=== PATIENT | male | born 1945 | race Caucasian/White ===

== ENCOUNTER 2024-08-04 06:46 | Emergency (ER) | payer OTHER ==
[~2024-08-04] VITALS: Ht 172.7 cm; Wt 64.0 kg
[2024-08-04 07:38] LABS: BASOPHILS # (AUTO) 0.1 K/uL (0.0-0.2); BASOPHILS % (AUTO) 0.8 % (0.0-2.0); EOSINOPHILS # (AUTO) 0.6 K/uL (0.0-0.7); EOSINOPHILS % (AUTO) 6.1 % (0.0-6.0); HEMATOCRIT 35 % (39-51); HEMOGLOBIN 11.7 g/dL (13.5-17.5); LYMPHOCYTES # (AUTO) 1.9 K/uL (0.8-4.8); MEAN CORPUSCULAR HEMOGLOBIN 31 PG (26.0-33.0); MEAN CORPUSCULAR HGB CONC 33 g/dl (31.0-36.0); MEAN CORPUSCULAR VOLUME 93 fL (80-96); MONOCYTES # (AUTO) 0.9 K/uL (0.1-1.30); MONOCYTES % (AUTO) 9.6 % (2.0-12.0); NEUTROPHILS % (AUTO) 63.5 % (43.0-81.0); PLATELET COUNT (AUTO) 382 K/uL (150-450); RED BLOOD CELL COUNT(AUTO) 3.79 MIL/uL (4.5-6.0); RED CELL DISTRIBUTION WIDTH 15.6 % (11.5-15.0); WHITE BLOOD COUNT (AUTO) 9.5 K/uL (4.3-11.0)
[2024-08-04] MEDS: IV NS 0.9% 1,000 ML BAG IV ONE (07:47)
[2024-08-04 07:51] LABS: CREATININE 1.2 mg/dL (0.6-1.3); LIPASE 13 U/L (16-77); POTASSIUM 4.4 mmol/L (3.5-5.1)
[2024-08-04 08:01] LABS: LACTIC ACID 0.6 mmol/L (0.4-2.0)
[2024-08-04 08:08] LABS: ALBUMIN 3.1 g/dL (3.4-5.0); BILIRUBIN,DIRECT 0.1 mg/dL (0.0-0.2); BILIRUBIN,TOTAL 0.3 mg/dL (0.2-1.0); TOTAL PROTEIN, SERUM 7.4 g/dL (6.4-8.2)
[2024-08-04 08:11] LABS: NT-PRO BNP 142 pg/mL (0-125)
[2024-08-04 08:12] LABS: SERUM AMMONIA 4 umol/L (11-32)
[2024-08-04] MEDS: VANCOMYCIN 1 GM in IV D5W 250 ML IV ONE (08:28)
[2024-08-04] MEDS: PIPERACILLIN /TAZOBACTAM 3.375 G in IV D5W 50 ML IV ONE (08:28)
[2024-08-04 09:28] LABS: INR 2.1 (0.91-1.10); PARTIAL THROMBOPLASTIN TIME 67.1 SEC (24.3-34.3); PROTHROMBIN TIME 21.2 SECS (9.2-11.1)
[2024-08-04 11:04] LABS: APPEARANCE,URINE CLEAR (CLEAR); BILIRUBIN,URINE NEGATIVE (NEGATIVE); BLOOD, URINE TRACE-INTA Ery/uL (NEGATIVE); COLOR,URINE OTHER (YELLOW); KETONES,URINE NEGATIVE (NEGATIVE); LEUKOCYTE ESTERASE ,URINE TRACE (NEGATIVE); NITRITE, URINE NEGATIVE (NEGATIVE); PROTEIN,URINE NEGATIVE (NEGATIVE); UGLUCOSE NEGATIVE (NEGATIVE); UROBILINOGEN,URINE 0.2 EU/dL (0.2)
[2024-08-04 11:13] LABS: ADD URINE CULTURE NO; BACTERIA,URINE Rare /HPF (None Seen); SQUAMOUS EPITHELIAL CELL,UR None Seen /HPF (None Seen); WBC,URINE 0-2 /HPF (0-3)
[2024-08-04 14:11] VITALS: BP 128/72; TEMP 98.3; O2SAT 96
== END 2024-08-04 13:00 | disposition short-term general hospital (02) ==
LOC: ER 06:58
DX: J18.9 Pneumonia, unspecified organism (principal); R41.82 Altered mental status, unspecified; I10 Essential (primary) hypertension; M10.9 Gout, unspecified; Z87.440 Personal history of urinary (tract) infections; Z87.09 Personal history of other diseases of the respiratory system; Z20.822 Contact with and (suspected) exposure to COVID-19
CPT/HCPCS: 99291; 96365; 70450; 71045; 87426; 96368; 93005; 87804 ×2; 82140; 84145; 85025; 80048; 87040 ×2; 87086; 83605; 83690; 80076; 81001; 36415; 84484; 85730; 83880; 82962; J3370; J2543; J7060; J7030; A4223

== ENCOUNTER 2025-03-12 02:13 | Emergency (ER) | payer OTHER ==
[~2025-03-12] VITALS: Ht 172.7 cm; Wt 63.5 kg
[2025-03-12 02:52] VITALS: O2SAT 99
[2025-03-12] MEDS ORDERED: PANTOPRAZOLE 40 MG VIAL ONE (02:53)
[2025-03-12] MEDS ORDERED: ONDANSETRON HCL/PF 4 MG/2 ML VIAL ONE (02:54)
[2025-03-12 03:06] LABS: PLATELET COUNT (AUTO) 387 K/uL (150-450); RED BLOOD CELL COUNT(AUTO) 3.80 MIL/uL (4.5-6.0); RED CELL DISTRIBUTION WIDTH 15.8 % (11.5-15.0); WHITE BLOOD COUNT (AUTO) 9.8 K/uL (4.3-11.0)
[2025-03-12] MEDS: IV NS 0.9% 1,000 ML BAG IV ONE (03:10)
[2025-03-12] MEDS: PANTOPRAZOLE 80 MG in IV NS 0.9% 100 ML IV ONE (03:10)
[2025-03-12] MEDS: ONDANSETRON HCL/PF 4 MG/2 ML VIAL IVP ONE (03:10)
[2025-03-12 03:15] LABS: CALCIUM, SERUM 8.7 mg/dL (8.5-10.1); CREATININE 1.0 mg/dL (0.6-1.3); SODIUM SERUM 137.0 mmol/L (136-145); UREA NITROGEN, BLOOD 27.0 mg/dL (7-18)
[2025-03-12 03:21] LABS: ASPARTATE AMINOTRANSFERASE 21.0 U/L (15-37); TOTAL PROTEIN, SERUM 6.6 g/dL (6.4-8.2)
[2025-03-12 03:26] LABS: LACTIC ACID 1.3 mmol/L (0.4-2.0)
[2025-03-12 03:32] LABS: INR 1.51 (0.91-1.10)
[2025-03-12 04:33] LABS: EOSINOPHILS % (MANUAL) 4 % (0-4); LYMPHOCYTES % (MANUAL) 21 % (16-48); MONOCYTES % (MANUAL) 7 % (0-11.0); NEUTROPHILS % (MANUAL) 66 (42-76); PLATELET ESTIMATE ADEQUATE; REACTIVE LYMPHOCYTES 2 % (0-0)
[2025-03-12 05:25] VITALS: TEMP 98.1
[2025-03-12 05:40] VITALS: O2SAT 100
[2025-03-12 08:00] VITALS: BP 137/79; O2SAT 100
== END 2025-03-12 11:06 | disposition short-term general hospital (02) ==
LOC: ER 02:17
DX: J96.10 Chronic respiratory failure, unspecified whether with hypoxia or hypercapnia (principal); K92.2 Gastrointestinal hemorrhage, unspecified; I10 Essential (primary) hypertension; M10.9 Gout, unspecified; Z87.440 Personal history of urinary (tract) infections
CPT/HCPCS: 99285; 96366; 74176; 96365; 71045; 96375; 93005; 85027; 80048; 87040 ×2; 83605; 83690; 80076; 85007; 36415; 85730; 86850; 82962; J2405; J7030 ×2; J2470 ×2